=== PATIENT | female | born 1995 | race Caucasian/White ===

== ENCOUNTER → 2017-02-14 | Outpatient (CLI) | payer BC, MEDICAID ==
[~2017-02-14] MED LIST: ACET50TA PO; ADVI200C5 PO; PRENTAB40 PO; PRENTAB9 PO
--- NOTE | 2017-02-14 17:03 | REP ---
LEFT BREAST ULTRASOUND: 02/14/2017. Clinical history: Two to three months of lateral left breast pain. Findings: Scanning from the noon position downward to 6 o'clock at the lateral aspect of the left breast performed. There is heterogeneously dense echogenic breast tissue without discrete solid or cystic mass, architectural distortion or dilated duct. Impression: 1. BIRADS ACR category 1 negative. No evidence of malignancy. Heterogeneous echogenic dense breast parenchyma lateral half of the breast without any specific finding. No further follow-up warranted unless there is a dominant or suspicious physical finding on clinical examination. Signed by Hardy Duenas MD 02/14/2017 08:38 P
== END ==
LOC: M RAD 12:27
PROVIDERS: ATTEND Advanced Practice Midwife
DX: N63.20 Unspecified lump in the left breast, unspecified quadrant (principal)

== ENCOUNTER 2020-06-20 16:37 | Emergency (ER) | payer OTHER, BC ==
[~2020-06-20] VITALS: Ht 172.7 cm; Wt 74.5 kg
[~2020-06-20 16:37] MED LIST changes: -ACET50TA PO; +MAPA500T2 PO
[2020-06-20] MEDS ORDERED: BUSP10TA (17:06)
[2020-06-20] MEDS ORDERED: SERT50TA29 (17:06)
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
[2020-06-20 18:45] VITALS: BP 133/79
== END 2020-06-20 19:38 | disposition home or self-care (01) ==
LOC: EDBD 16:37 → M ED 16:37
DX: S09.90XA Unspecified injury of head, initial encounter (principal); V43.62XA Car passenger injured in collision with other type car in traffic accident, initial encounter; Y92.9 Unspecified place or not applicable; Y93.9 Activity, unspecified; Y99.9 Unspecified external cause status; J45.909 Unspecified asthma, uncomplicated; Z88.0 Allergy status to penicillin; Z91.013 Allergy to seafood

== ENCOUNTER 2024-07-04 15:00 | Emergency (ER) | payer OTHER ==
[~2024-07-04] VITALS: Ht 160 cm; Wt 79.0 kg
[~2024-07-04 15:00] MED LIST changes: +BUSP10TA; +SERT50TA29
[2024-07-04 15:20] VITALS: TEMP 97
[2024-07-04 16:32] LABS: BASO % 0.2 % (0.0-1.0); EOS # 0.3 10^3/uL (0.0-0.5); HEMATOCRIT 38.5 % (36.0-47.0); HEMOGLOBIN 12.2 g/dl (12.0-15.5); LYMPH # 0.7 10^3/uL (1.5-5.0); MEAN CORPUSCULAR HEMOGLOBIN 26.6 pg (27.0-33.0); MEAN CORPUSCULAR HGB CONC 31.7 g/dl (32.0-36.5); MEAN CORPUSCULAR VOLUME 83.9 fl (80.0-96.0); MONO # 0.7 10^3/uL (0.0-0.8); MONO % 5.4 % (2.0-8.0); NEUTROPHILS # 11.5 10^3/uL (1.5-8.5); NEUTROPHILS % 86.9 % (36.0-66.0); PLATELET COUNT, AUTOMATED 260 10^3/uL (150-450); RED BLOOD COUNT 4.59 10^6/uL (4.00-5.40); WHITE BLOOD COUNT 13.2 10^3/uL (4.0-10.0)
[2024-07-04 17:00] LABS: BLOOD UREA NITROGEN 18 MG/DL (9-23); CALCIUM LEVEL 8.7 MG/DL (8.5-10.1); CARBON DIOXIDE LEVEL 23 MMOL/L (20-31); CHLORIDE LEVEL 107 MMOL/L (98-107); CREATININE FOR GFR 0.69 MG/DL (0.55-1.30); GLOMERULAR FILTRATION RATE > 90.0 (>60); GLUCOSE, FASTING 112 MG/DL (60-100); POTASSIUM SERUM 4.2 MMOL/L (3.5-5.1); SODIUM LEVEL 140 MMOL/L (136-145)
[2024-07-04 17:03] LABS: THYROID STIMULATING HORMONE 1.135 uIU/ML (0.55-4.78)
[2024-07-04] MEDS: NS (Normal Saline) 0.9% 1,000 ML IV ONE (17:35)
[2024-07-04 17:45] LABS: ALKALINE PHOSPHATASE 66 U/L (35-104); ALT/SGPT 15 U/L (7.0-40); AST/SGOT 12 U/L (<34); BILIRUBIN,DIRECT 0.1 MG/DL (<0.4); BILIRUBIN,TOTAL 0.4 MG/DL (0.3-1.2)
[2024-07-04 17:50] LABS: HCG, SERUM QUALITATIVE NEGATIVE (NEGATIVE)
[2024-07-04] MEDS: ONDANSETRON 4MG 2ML VIAL IV ONE (18:00)
[2024-07-04 19:30] VITALS: BP 109/65; O2SAT 98
[2024-07-04] MEDS ORDERED: ONDA-282 PO (19:48)
== END 2024-07-04 20:00 | disposition home or self-care (01) ==
LOC: EDBD 15:00 → M ED 15:00
DX: A08.11 Acute gastroenteropathy due to Norwalk agent (principal); R55 Syncope and collapse; J45.909 Unspecified asthma, uncomplicated; Z88.0 Allergy status to penicillin
CPT/HCPCS: 71045; 80047; 80048; 80076; 84443; 84703; 85025; 87507; 93005; 93041; 94760; 96361; 96374; 99285; J2405

== ENCOUNTER → 2024-09-17 | Outpatient (CLI) | payer OTHER ==
[~2024-09-17] MED LIST changes: +ONDA-282 PO
== END ==
LOC: M WHC 13:52
PROVIDERS: ATTEND Emergency Medicine
DX: N64.4 Mastodynia (principal)